=== PATIENT | female | born 2000 | race Caucasian/White ===

== ENCOUNTER 2023-10-04 15:41 | Emergency (ER) | payer BC, MEDICAID, SELFPAY ==
[2023-10-04 15:43] VITALS: BP 129/91; PULSE 91; RESP 18; TEMP 36.6; O2SAT 99; BMI 32.7
--- NOTE | 2023-10-04 15:56 | ED.VIS.DENTA ---
HPI History of Present Illness Chief Complaint: Dental Informant: patient and parent Onset/Context/Timing Onset: Days (2 days) Context: Gradual Onset Current Severity: Moderate Maximum Severity: Moderate Narrative Narrative: Patient presents secondary to dental pain. About 2 days ago she noted her wisdom tooth coming out on the right lower side. She has pain all along the right jaw as well as in the mid right upper teeth. No known fractured teeth. She states the pain feels gets wrapping up around her face and into her forehead. No URI symptoms. No recent trauma. [facility] Medical History (Updated 10/04/23 @ 16:[address] Alysha Black MD) history of norovirus Home Medications ascorbic acid (vitamin C) 1,000 mg tablet (Vitamin C) 1,000 mg PO DAILY 11/10/17 [History Last Taken 11/08/17] pediatric multivitamin no.17 (Animal Shapes chewable tablet) 1 ea PO DAILY 11/10/17 [History Last Taken 11/08/17] amoxicillin 500 mg capsule 500 mg PO BID #20 caps 05/04/19 [Rx Last Taken Unknown] penicillin V potassium 500 mg tablet 500 mg PO 4X/DAY #40 tabs 10/04/23 [Rx Last Taken Unknown] Allergy/AdvReac Type Severity Reaction Status Date / Time No Known Allergies Allergy Verified 10/04/23 15:43 Family History Brother Asthma Spina bifida Mother Graves disease Father Hypertension Surgical History No history of previous surgery Social History Smoking Status: Never smoker alcohol intake: never ROS ROS ED Constitutional Constitutional ED: Denies chills or fever(s) Eyes Eyes: Denies discharge from eye(s) ENT ENT ED: Reports other Details: Right-sided facial pain ; Denies discharge from eye(s), rhinorrhea or sore throat Cardiovascular Cardiovascular: Denies chest pain Respiratory/Chest Respiratory/Chest: Denies dyspnea Gastrointestinal Gastrointestinal: Denies abdominal pain, nausea or vomiting Musculoskeletal Musculoskeletal: Denies neck pain Integumentary Denies Abrasions or rash Neurologic Neurologic: Denies headache(s) or weakness Allergic/Immunologic Allergic/Immunologic ED: Denies lip swelling or urticaria EXAM Physical Exam Const Vital Signs: 10/04/23 15:43 Temperature 97.9 F Temperature Source Temporal Pulse Rate 91 Respiratory Rate 18 Blood Pressure 129/91 H Blood Pressure Mean 103 Pulse Ox 99 Oxygen Delivery Method Room Air Positive well nourished and well developed General Appearance ED: well developed HEENT HEENT Narrative: No obvious facial edema or erythema noted. Patient speaks with a strong voice and is tolerating secretions well. Intraoral examination reveals right mandibular third molar to be emerging is slightly crowding the other teeth. She does have focal tenderness along the right maxillary first molar. No surrounding gum edema at this time. Posterior pharynx is normal. No evidence of Ludewig's angina. Eyes PERRL and EOMs intact bilaterally Neck no lymphadenopathy Resp normal respiratory effort and clear to auscultation bilaterally Cardio regular rate and regular rhythm GI non-tender Palpation: soft Extremity normal to inspection Neuro oriented x3 and moves all extremities MDM MDM MDM Narrative Medical decision making narrative: Patient is taking ibuprofen at home. We discussed appropriate dosing. She also has some Percocet that she can take for breakthrough pain. Given her focal tenderness in the right maxillary surface I will write her antibiotics. She is advised to follow-up with her dentist. Return instructions given. Discharge Plan Triage Chief Complaint: Dental ED Provider: Alysha Black Dx/Rx/DC Orders Clinical Impression: Odontalgia Instructions: ED Dental Pain Prescriptions: New penicillin V potassium 500 mg tablet 500 mg PO 4X/DAY Qty: 40 0RF No Action amoxicillin 500 mg capsule 500 mg PO BID Qty: 20 0RF pediatric multivitamin no.17 [Animal Shapes] 1 EACH tablet,chewable 1 ea PO DAILY Patient Comments: vitamin ascorbic acid (vitamin C) [Vitamin C] 1,000 MG tablet 1,000 mg PO DAILY Patient Comments: vitamin Primary Care Provider: Arron Funez Referrals: Arron Funez MD [Primary Care Provider] - Activity Restrictions/Additional Instructions: Follow-up with your dentist. Disposition Disposition: Home, Self Care
[2023-10-04] MEDS: Penicillin Vk 250 MG Tablet 500 MG PO (16:08)
[2023-10-04 16:09] VITALS: PULSE 76; RESP 18; O2SAT 96
== END 2023-10-04 16:27 | disposition home or self-care (01) ==
LOC: ED 16:24
PROVIDERS: Emergency Provider Emergency Medicine; PCP Family Medicine; Visit Provider Emergency Medicine
DX: K08.89 Other specified disorders of teeth and supporting structures (principal)
CPT/HCPCS: 99282